=== PATIENT | female | born 1970 | race African-American/Black ===

== ENCOUNTER → 2018-07-09 | Outpatient (CLI) | payer BC ==
[~2018-07-09] MED LIST: ALLOPURINOL 30300 M2 PO; ASPIR 8181 MG PO; BICARSIM80 MG PO; CHLORTHALIDONE25 MG PO; HYDROCODONE-AP1 EAC6 PO; IBUPROFEN 600600 M1 PO; KOMBIGLYZE XR1 EACH PO; NOHOMEMEDICATIONS; ONGLYZA5 MG PO; TRINATE TABLET1 TAB PO
== END ==
LOC: RAD 03:12
DX: Z12.31 Encounter for screening mammogram for malignant neoplasm of breast (principal)

== ENCOUNTER → 2019-07-09 | Outpatient (CLI) | payer BC | LOC: RAD 09:30 | DX: Z12.31 Encounter for screening mammogram for malignant neoplasm of breast (principal); N63.10 Unspecified lump in the right breast, unspecified quadrant ==

== ENCOUNTER → 2019-07-17 | Outpatient (CLI) | payer BC | LOC: ULTRA 10:53 | DX: N83.201 Unspecified ovarian cyst, right side (principal) ==

== ENCOUNTER → 2020-07-09 | Outpatient (CLI) | payer BC | LOC: BC 09:53 | PROVIDERS: ATTEND Family Medicine | DX: Z12.31 Encounter for screening mammogram for malignant neoplasm of breast (principal) ==